=== PATIENT | male | born 1960 | race Caucasian/White ===

== ENCOUNTER 2016-11-26 13:25 | Inpatient (IN) | payer OTHER ==
[~2016-11-26] VITALS: Ht 167.6 cm; Wt 42.6 kg
[2016-11-26 14:16] LABS: HEMOGLOBIN 11.1 gm/dl (14.0-17.5); RED BLOOD COUNT 3.8 M/UL (4.20-5.50); WHITE BLOOD COUNT 8.2 K/UL (4.5-11.0)
[2016-11-26 14:55] LABS: BUN/CREATININE RATIO 46 (0-10)
[2016-11-27 04:40] LABS: HEMOGLOBIN 9.7 gm/dl (14.0-17.5); WHITE BLOOD COUNT 7.2 K/UL (4.5-11.0)
[2016-11-27 05:02] LABS: RED BLOOD COUNT 3.3 M/UL (4.20-5.50)
[2016-11-27 05:03] LABS: BUN/CREATININE RATIO 47 (0-10)
[2016-11-28 03:41] LABS: HEMOGLOBIN 11.1 gm/dl (14.0-17.5); WHITE BLOOD COUNT 8.7 K/UL (4.5-11.0)
[2016-11-28 03:42] LABS: RED BLOOD COUNT 3.73 M/UL (4.20-5.50)
[2016-11-28 03:59] LABS: BUN/CREATININE RATIO 27 (0-10)
[2016-11-29 03:09] LABS: HEMOGLOBIN 11.9 gm/dl (14.0-17.5); RED BLOOD COUNT 4.03 M/UL (4.20-5.50); WHITE BLOOD COUNT 6.9 K/UL (4.5-11.0)
[2016-11-29 03:47] LABS: BUN/CREATININE RATIO 20 (0-10)
[2016-11-30 03:48] LABS: HEMOGLOBIN 10.7 gm/dl (14.0-17.5); RED BLOOD COUNT 3.66 M/UL (4.20-5.50)
[2016-11-30 04:08] LABS: BUN/CREATININE RATIO 33 (0-10)
[2016-12-01 07:03] LABS: BUN/CREATININE RATIO 45 (0-10)
[2016-12-01 08:20] LABS: HEMOGLOBIN 11.5 gm/dl (14.0-17.5); RED BLOOD COUNT 3.92 M/UL (4.20-5.50); WHITE BLOOD COUNT 7.1 K/UL (4.5-11.0)
[2016-12-01] MEDS ORDERED: KEPPRA500 MG PO (14:46)
[2016-12-01] MEDS ORDERED: LEXAPRO5 MG PO (14:47)
[2016-12-01] MEDS ORDERED: PERCOCET 5-3251 EACH PO (14:48)
[2016-12-01] MEDS ORDERED: KLONOPIN TAB 00.5 MG PO (14:49)
== END 2016-12-01 15:51 | disposition home or self-care (01) | DRG 100 ==
LOC: ER1 13:25 → ZEROF 15:30 → CCU 15:30 → MED SURG 4 11-30 19:33
PROVIDERS: Emergency Medicine; Internal Medicine; Internal Medicine Gastroenterology; Internal Medicine Hematology & Oncology; ADMIT Emergency Medicine
PROC: 0DB48ZX Excision of Esophagogastric Junction, Via Natural or Artificial Opening Endoscopic, Diagnostic (ICD-10-PCS; principal; 2016-11-29 17:45)
DX: G40.409 Other generalized epilepsy and epileptic syndromes, not intractable, without status epilepticus (principal); J96.91 Respiratory failure, unspecified with hypoxia; E43 Unspecified severe protein-calorie malnutrition; C16.0 Malignant neoplasm of cardia; R18.8 Other ascites; R13.10 Dysphagia, unspecified; R91.8 Other nonspecific abnormal finding of lung field; K76.9 Liver disease, unspecified; E83.42 Hypomagnesemia; J44.9 Chronic obstructive pulmonary disease, unspecified; F17.210 Nicotine dependence, cigarettes, uncomplicated; F10.20 Alcohol dependence, uncomplicated; K22.9 Disease of esophagus, unspecified; K59.09 Other constipation; R62.7 Adult failure to thrive; R11.10 Vomiting, unspecified; Z79.899 Other long term (current) drug therapy; Z79.51 Long term (current) use of inhaled steroids
CPT/HCPCS: 36415; 36600; 70450; 70551; 71010; 71260; 80048; 80053; 82550; 82553; 82607; 82746; 82803; 83605; 83735; 83874; 84100; 84132; 84484; 85025; 85027; 85610; 85730; 87040; 93005; 94664; 95816; 96361; 96365; 97116; 97530; 97535; 99285; C9113; G0480; J0456; J1650; J1953; J2060; J2250; J3480; J7030; J7040; J7050; Q9962